=== PATIENT | female | born 1970 | race Asian ===

== ENCOUNTER 2020-11-26 09:15 | Day surgery (SDC) | payer OTHER ==
[2020-11-23 14:21] LABS: BASOPHIL % 0.7 % (0.2-1.3); PLATELET COUNT 287 x10^3mcL (179-408); RED CELL DISTRIBUTION WIDTH 13.9 % (12.3-17.7)
[2020-11-23 15:16] LABS: ALBUMIN 3.8 g/dL (3.4-5.0); ALKALINE PHOSPHATASE 28 U/L (46-116); ALT/SGPT 25 U/L (14-59); AST/SGOT 24 U/L (15-37); BILIRUBIN TOTAL 0.3 mg/dL (0.20-1.00); CALCIUM 8.9 mg/dL (8.5-10.1); CARBON DIOXIDE 32.5 mmol/L (21-32); CHLORIDE SERUM 103 mmol/L (98-107); CREATININE SERUM 0.8 mg/dL (0.6-1.0); GFR1 > 60 mL/min; GLUCOSE SERUM 92 mg/dL (74-106); SODIUM SERUM 141 mmol/L (136-145); TOTAL PROTEIN, SERUM 7.4 g/dL (6.4-8.2)
[~2020-11-26] VITALS: Ht 170.2 cm; Wt 68.0 kg
[2020-11-26 09:46] VITALS: BP 132/75
[2020-11-26 10:52] VITALS: BP 132/75
[2020-11-26 16:13] VITALS: BP 120/74
== END 2020-11-26 15:15 | disposition home or self-care (01) ==
LOC: DS 09:15 → OR 11:30 → DS 11:30
PROVIDERS: ATTEND Surgery
DX: R10.30 Lower abdominal pain, unspecified (principal); K64.4 Residual hemorrhoidal skin tags; Z98.51 Tubal ligation status
CPT/HCPCS: J0690; J2175; J2405; J2704; J3010; J3490